=== PATIENT | female | born 1965 | race Caucasian/White ===

== ENCOUNTER 2017-01-30 03:13 | Inpatient (IN) | payer OTHER ==
[2017-01-30] VITALS (18 sets, daily range): BP systolic 102–141; BP diastolic 40–98
[~2017-01-30] VITALS: Ht 162.6 cm; Wt 72.6 kg
[2017-01-30] MEDS ORDERED: HUMALOG100 UNIT/4 SUBQ (03:21)
[2017-01-30] MEDS ORDERED: LANTUS SOL100 UNIT/1 SUBQ (03:21)
--- NOTE | 2017-01-30 03:36 | Emergency Room Report ---
History of Present Illness General Chief Complaint: Vomiting Source: Patient Present Illness HPI Is a 51-year-old female with history of diabetes, on insulin. She presents with chief complaint abdominal pain with vomiting. Onset last night. Worse around an hour ago. Unable to keep anything down. No diarrhea. No fever or chills. Does have aches and pain. Pain is 7/10 crampy in nature. No sick contact. No runny nose. No congestion. Allergies: Coded Allergies: PENICILLINS (Verified Allergy, Unknown, 01/30/17) Patient History Past Medical History: see triage record, old chart reviewed, DM Past Surgical History: other Pertinent Family History: none Social History: Denies: smoking Last Menstrual Period: last week Now: No Immunizations: other Reviewed Nursing Documentation: PMH: Agreed, PSxH: Agreed Nursing Documentation-PMH Hx Diabetes: Yes Review of Systems Eye: Denies: blurred vision, eye pain ENT: Denies: ear pain, nose congestion, throat swelling Respiratory: Denies: cough, shortness of breath Cardiovascular: Denies: chest pain, palpitations Gastrointestinal: Reports: abdominal pain, nausea, vomiting Musculoskeletal: Denies: back pain, joint pain Skin: Denies: rash Neurological: Denies: headache, numbness Endocrine: Denies: increased thirst, increased urine Hematologic/Lymphatic: Denies: easy bruising All Other Systems: negative except mentioned in HPI Physical Exam Vital Signs Date Time Temp Pulse Resp B/P Pulse Ox O2 Delivery O2 Flow Rate FiO2 01/30/17 03:16 98.2 110 18 130/61 100 Room Air vitals with tachycardi Sp02 EP Interpretation: reviewed, normal General Appearance: well appearing, no apparent distress, alert Head: normocephalic, atraumatic Eyes: bilateral eye EOMI, bilateral eye PERRL ENT: hearing grossly normal, normal pharynx Neck: full range of motion, supple, no meningismus Respiratory: chest non-tender, lungs clear, normal breath sounds Cardiovascular #1: regular rate, rhythm, no murmur Gastrointestinal: normal bowel sounds, non tender, no mass, no organomegaly, no bruit, non-distended Musculoskeletal: back normal, gait/station normal, normal range of motion Psychiatric: mood/affect normal Skin: warm/dry Procedures Critical Care Time Critical Care Time Critical care is mandated in this patient who presented with DKA. Patient require my urgent intervention to attenuate the risks of metabolic collapse which may lead to cardiovascular collapse and . Critical care time is 35 minutes excluding any reportable procedure. Critical care time included evaluation, multiple reevaluation, looking at old charts, interpreting laboratory and diagnostic data, discussing case with patient and family and consultants, and charting. Medical Decision Making Diagnostic Impression: Primary Impression: Dehydration Additional Impressions: Acute renal failure (ARF) Qualified Codes: N17.9 - Acute kidney failure, unspecified Vomiting Qualified Codes: R11.2 - Nausea with vomiting, unspecified Acute hyperkalemia ER Course Patient present with vomiting. She is dehydrated and is in DKA. She will placed on an insulin drip. Potassium is elevated but she is getting insulin. This should drop. No evidence of bacterial infection. Oxygenation is normal. Will admit to ICU. Patient is unstable for transfer. Laboratory Tests Test 01/30/17 03:32 01/30/17 04:07 White Blood Count 12.7 K/UL (4.8-10.8) H Red Blood Count 4.88 M/UL (4.20-5.40) Hemoglobin 13.0 G/DL (12.0-16.0) Hematocrit 42.6 % (37.0-47.0) Mean Corpuscular Volume 87 FL (80-99) Mean Corpuscular Hemoglobin 26.5 PG (27.0-31.0) L Mean Corpuscular Hemoglobin Concent 30.4 G/DL (32.0-36.0) L Red Cell Distribution Width 13.4 % (11.6-14.8) Platelet Count 298 K/UL (150-450) Mean Platelet Volume 6.0 FL (6.5-10.1) L Neutrophils (%) (Auto) % (45.0-75.0) Lymphocytes (%) (Auto) % (20.0-45.0) Monocytes (%) (Auto) % (1.0-10.0) Eosinophils (%) (Auto) % (0.0-3.0) Basophils (%) (Auto) % (0.0-2.0) Urine Color Pale yellow Urine Appearance Clear Urine pH 5 (4.5-8.0) Urine Specific [place] 1.015 (1.005-1.035) Urine Protein 2+ (NEGATIVE) H Urine Glucose (UA) 4+ (NEGATIVE) H Urine Ketones 4+ (NEGATIVE) H Urine Occult Blood 2+ (NEGATIVE) H Urine Nitrite Negative (NEGATIVE) Urine Bilirubin Negative (NEGATIVE) Urine Urobilinogen Normal MG/DL (0.0-1.0) Urine Leukocyte Esterase Negative (NEGATIVE) Urine RBC 5-10 /HPF (0 - 2) H Urine WBC 0 /HPF (0 - 2) Urine Squamous Epithelial Cells Many /LPF (NONE/OCC) H Urine Bacteria Few /HPF (NONE) Sodium Level 133 mEQ/L (135-145) L Potassium Level 6.8 mEQ/L (3.4-4.9) *H Chloride Level 90 mEQ/L (98-107) L Carbon Dioxide Level 8 mEQ/L (20-30) *L Anion Gap 35 (5-15) H Blood Urea Nitrogen 37 mg/dL (7-23) H Creatinine 1.7 mg/dL (0.5-0.9) H Estimat Glomerular Filtration Rate 32.0 mL/min (>60) Glucose Level 559 mg/dL (74-106) *H Calcium Level 9.1 mg/dL (8.6-10.2) Total Bilirubin 0.4 mg/dL (0.0-1.2) Aspartate Amino Transf (AST/SGOT) 15 U/L (5-40) Alanine Aminotransferase (ALT/SGPT) 12 U/L (3-33) Alkaline Phosphatase 87 U/L (35-104) Total Protein 7.8 g/dL (6.6-8.7) Albumin 4.0 g/dL (3.5-5.2) Globulin 3.8 g/dL Albumin/Globulin Ratio 1.0 (1.0-2.7) Lipase 9 U/L (< 60) Arterial Blood pH 7.029 (7.350-7.450) Arterial Blood Partial Pressure CO2 15.4 mmHg (35.0-45.0) *L Arterial Blood Partial Pressure O2 177.3 mmHg (75.0-100.0) H Arterial Blood HCO3 4.0 mmol/L (22.0-26.0) L Arterial Blood Oxygen Saturation 98.6 % (92.0-98.0) H Arterial Blood Base Excess -25 [place]ingo Test Positive Lab Results Impression labs with high glucose and low bicarbonate. Rhythm Strip Diag. Results EP Interpretation: yes Rate: 90 Rhythm: NSR, no PVC's, no ectopy Last Vital Signs Date Time Temp Pulse Resp B/P Pulse Ox O2 Delivery O2 Flow Rate FiO2 01/30/17 03:16 98.2 110 18 130/61 100 Room Air Status: improved Disposition: ADMITTED INPATIENT Condition: Critical RONDA BERRY M.D. Jan 30, 2017 03:36
[2017-01-30 03:41] LABS: MEAN CORPUSCULAR HEMOGLOBIN 26.5 PG (27.0-31.0); MEAN CORPUSCULAR HGB CONC 30.4 G/DL (32.0-36.0); MEAN CORPUSCULAR VOLUME 87 FL (80-99); PLATELET COUNT 298 K/UL (150-450); RED BLOOD COUNT 4.88 M/UL (4.20-5.40); RED CELL DISTRIBUTION WIDTH 13.4 % (11.6-14.8); WHITE BLOOD COUNT 12.7 K/UL (4.8-10.8)
[2017-01-30 03:42] LABS: APPEARANCE,URINE CLEAR; KETONES,URINE 4+ (NEGATIVE); LEUKOCYTE ESTERASE ,URINE NEGATIVE (NEGATIVE); NITRITE,URINE NEGATIVE (NEGATIVE); PH,URINE 5 (4.5-8.0); PROTEIN,URINE 2+ (NEGATIVE); UROBILINOGEN,URINE NORMAL MG/DL (0.0-1.0)
[2017-01-30] MEDS ORDERED: Ketorolac 30mg Inj IV ONE (03:45)
[2017-01-30 03:50] LABS: BACTERIA,URINE FEW /HPF; SQUAMOUS EPITHELIAL CELL,UR MANY /LPF (NONE/OCC); WBC,URINE 0 /HPF (0 - 2)
[2017-01-30 03:58] LABS: CALCIUM 9.1 mg/dL (8.6-10.2); CREATININE 1.7 mg/dL (0.5-0.9); TOTAL PROTEIN 7.8 g/dL (6.6-8.7)
[2017-01-30 04:03] LABS: POTASSIUM 6.8 mEQ/L (3.4-4.9)
[2017-01-30 04:26] LABS: ABG ALLEN TEST POSITIVE; ABG BASE EXCESS -25; ABG PCO2 15.4 mmHg (35.0-45.0)
[2017-01-30 06:45] LABS: ANION GAP 34 (5-15); CALCIUM 8.2 mg/dL (8.6-10.2); CHLORIDE 96 mEQ/L (98-107); CREATININE 1.5 mg/dL (0.5-0.9); GLOMERULAR FILTRATION RATE 36.9 mL/min (>60); HEMOLYSIS 24; POTASSIUM 5.6 mEQ/L (3.4-4.9); SODIUM 136 mEQ/L (135-145)
[2017-01-30 06:52] LABS: CARBON DIOXIDE < 6 mEQ/L (20-30)
[2017-01-30] MEDS ORDERED: D5 1/2NS 1,000 ML IV SCH (07:00)
[2017-01-30 07:14] LABS: ANION GAP 34 (5-15); CALCIUM 8.3 mg/dL (8.6-10.2); CHLORIDE 98 mEQ/L (98-107); CREATININE 1.5 mg/dL (0.5-0.9); GLOMERULAR FILTRATION RATE 36.9 mL/min (>60); HEMOLYSIS 140; POTASSIUM 5.7 mEQ/L (3.4-4.9); SODIUM 138 mEQ/L (135-145)
[2017-01-30 07:25] LABS: CARBON DIOXIDE < 6 mEQ/L (20-30)
[2017-01-30] MEDS ORDERED: Sodium Bicarbonate 8.4% 50ml Carp IV ONE (08:30)
[2017-01-30] MEDS ORDERED: Azithromycin 250mg tab ORAL ONE (09:15)
[2017-01-30] MEDS: D5 1/2NS 1,000 ML IV SCH ×4 (10:07→23:01)
--- NOTE | 2017-01-30 12:27 | Diagnostic Imaging Report ---
Indication: COUGH Technique: One view of the chest Comparison: 07/21/2006 Findings: Lungs and pleural spaces are clear. Heart size is normal. No significant change Impression: No acute process
[2017-01-30 15:45] LABS: CALCIUM 7.3 mg/dL (8.6-10.2); GLOMERULAR FILTRATION RATE 58.9 mL/min (>60); POTASSIUM 3.9 mEQ/L (3.4-4.9)
[2017-01-30] MEDS: Insulin Rate Change 1 Each MISC PRN ×6 (16:18→23:02)
[2017-01-30] MEDS: Heparin 5000 units/ml inj SUBQ SCH (21:04)
--- NOTE | 2017-01-30 21:28 | History and Physical Report ---
DATE OF ADMISSION: 01/30/2017 CHIEF COMPLAINT: Nausea and vomiting. HISTORY OF PRESENT ILLNESS: The patient is a 51-year-old woman admitted to the emergency room today because of the above-noted symptoms. She says that she has had these symptoms for a day or two. She had a low-grade fever and some muscle aches. She was unable to eat and did not take her regular insulin dose. She became very weak and came to the emergency department. She was found to have diabetic ketoacidosis with severe acidemia; pH of 7.03. She was started on insulin drip and admission was arranged. PAST MEDICAL HISTORY: She has type 1 diabetes since age 12. She denies any other major health problems and denies cardiac disorders, hypertension or hyperlipidemia. SURGICAL HISTORY: Negative. HABITS: She does not smoke or drink and does not use drugs. REVIEW OF SYSTEMS: Otherwise, unremarkable. She has had a slight cough. PHYSICAL EXAMINATION: GENERAL: The patient is alert and responds appropriately. She is overweight. VITAL SIGNS: Heart rate is elevated 108 and regular. Other vital signs are normal. HEENT: The head is normocephalic. The breath smells ketotic. NECK: No jugular venous distention. No lymphadenopathy. CHEST: Clear. CARDIAC: Rhythm is regular and rapid. ABDOMEN: Soft and nontender. Liver and spleen not enlarged. EXTREMITIES: No clubbing, cyanosis, or edema. LABORATORY AND DIAGNOSTIC DATA: A chest x-ray is negative. White count is 12,700 and hemoglobin is 13. The pH is 7.03, pCO2 of 15, pO2 177, and base excess -25. Potassium was 6.8, but improved to 5.7, bicarbonate less than 6, creatinine 1.5 down from 1.7 and blood sugar was 559 when she arrived. Urinalysis shows no white cells, few red cells with 4+ glucose ketones and some protein. IMPRESSION: 1. Diabetic ketoacidosis with severe acidemia. 2. Mild leukocytosis PLAN: The patient will be continued on the insulin drip, intravenous fluids, and Endocrine consultation has been requested. Antibiotics will be given. She will be admitted to the intensive care. Serge Hernandez M.D. DR: LUDY JOB#: [id number] CC:
[2017-01-31] VITALS (15 sets, daily range): BP systolic 102–155; BP diastolic 40–89
[2017-01-31] MEDS: Insulin Rate Change 1 Each MISC PRN ×7 (00:14→06:14)
[2017-01-31] MEDS: D5 1/2NS 1,000 ML IV SCH (04:11)
[2017-01-31 06:20] LABS: MEAN CORPUSCULAR HEMOGLOBIN 29.3 PG (27.0-31.0); MEAN CORPUSCULAR HGB CONC 34.1 G/DL (32.0-36.0); MEAN CORPUSCULAR VOLUME 86 FL (80-99); MEAN PLATELET VOLUME 6.3 FL (6.5-10.1); PLATELET COUNT 156 K/UL (150-450); RED BLOOD COUNT 2.58 M/UL (4.20-5.40); WHITE BLOOD COUNT 15.3 K/UL (4.8-10.8)
[2017-01-31 06:41] LABS: ALANINE AMINOTRANSFERASE 10 U/L (3-33); ANION GAP 13 (5-15); ASPARTATE AMINO TRANSFERASE 17 U/L (5-40); CALCIUM 7.9 mg/dL (8.6-10.2); CARBON DIOXIDE 18 mEQ/L (20-30); CHLORIDE 104 mEQ/L (98-107); CREATININE 0.8 mg/dL (0.5-0.9); GLOMERULAR FILTRATION RATE > 60 mL/min (>60); HEMOLYSIS 2; POTASSIUM 3.4 mEQ/L (3.4-4.9); SODIUM 135 mEQ/L (135-145); TOTAL PROTEIN 5.3 g/dL (6.6-8.7)
--- NOTE | 2017-01-31 06:56 | General Progress Note ---
Assessment/Plan Problem List: (1) Diabetes mellitus with ketoacidosis ICD Codes: E13.10 - Other specified diabetes mellitus with ketoacidosis without coma SNOMED: 77140282, 077027383 (2) Acute hyperkalemia ICD Codes: E87.5 - Hyperkalemia SNOMED: 9737521 (3) Dehydration ICD Codes: E86.0 - Dehydration SNOMED: 00125910 (4) Acute renal failure (ARF) ICD Codes: N17.9 - Acute kidney failure, unspecified SNOMED: 92631319 Qualifiers: Qualified Codes: N17.9 - Acute kidney failure, unspecified (5) Vomiting ICD Codes: R11.10 - Vomiting, unspecified SNOMED: 224778275 Qualifiers: Qualified Codes: R11.2 - Nausea with vomiting, unspecified Assessment/Plan DC IV insulin start Levemir 30 units qam + Novolog 10 units ac tid + SSI change IVF to NS Subjective Allergies: Coded Allergies: PENICILLINS (Verified Allergy, Unknown, 01/30/17) All Systems: reviewed and negative except above Subjective in icu - doing better Objective Last 24 Hour Vital Signs Date Time Temp Pulse Resp B/P Pulse Ox O2 Delivery O2 Flow Rate FiO2 01/31/17 06:00 83 15 116/69 96 Room Air 01/31/17 05:00 82 15 119/61 96 Room Air 01/31/17 04:00 97.9 90 10 130/66 100 Room Air 01/31/17 04:00 85 01/31/17 03:00 81 17 138/70 96 Room Air 01/31/17 02:00 86 16 117/65 93 Room Air 01/31/17 01:00 84 14 123/62 97 Room Air 01/31/17 00:51 Room Air 01/31/17 00:00 86 01/31/17 00:00 98.3 87 16 102/40 97 Room Air 01/30/17 23:00 96 18 113/54 100 Room Air 01/30/17 22:00 100 14 111/58 100 Room Air 01/30/17 22:00 98.7 01/30/17 21:00 96 14 106/62 100 Room Air 01/30/17 20:00 98.7 92 16 119/75 100 Room Air 01/30/17 20:00 95 01/30/17 19:00 98 14 106/62 100 Room Air 01/30/17 18:00 95 16 107/45 100 Room Air 01/30/17 17:00 94 17 126/61 100 Room Air 01/30/17 16:00 98.9 95 16 117/40 98 Room Air 01/30/17 15:00 92 17 107/54 98 Room Air 01/30/17 14:00 102 18 106/57 100 Room Air 01/30/17 13:00 99.0 102 18 105/42 100 Room Air 01/30/17 12:30 101 01/30/17 12:19 99 18 117/56 99 Room Air 01/30/17 11:24 98.3 97 18 132/56 99 Room Air 01/30/17 10:30 98.3 87 15 137/61 100 Room Air 01/30/17 09:30 97.5 100 26 116/64 100 Room Air 01/30/17 08:30 98.0 99 22 129/57 100 Room Air 01/30/17 07:25 97.8 105 20 102/46 100 Room Air 01/30/17 07:25 105 20 Room Air Intake and Output 01/30/17 01/31/17 19:00 07:00 Intake Total 3232.48 ml 2114.21 ml Output Total 700 ml 0 ml Balance 2532.48 ml 2114.21 ml Intake Oral 300 ml 50 ml IV Total 2432.48 ml 2024.21 ml Other 500 ml 40 ml Output Urine Total 700 ml 0 ml # Voids 3 Laboratory Tests 01/30/17 15:00: Sodium Level 136, Potassium Level 3.9, Chloride Level 102, Carbon Dioxide Level 17L, Anion Gap 17H, Blood Urea Nitrogen 22, Creatinine 1.0H, Estimat Glomerular Filtration Rate 58.9, Glucose Level 230#H, Calcium Level 7.3L 01/31/17 04:10: Sodium Level 135, Potassium Level 3.4, Chloride Level 104, Carbon Dioxide Level 18L, Anion Gap 13, Blood Urea Nitrogen 14, Creatinine 0.8, Estimat Glomerular Filtration Rate > 60, Glucose Level 153H, Calcium Level 7.9L, White Blood Count 15.3H, Red Blood Count 2.58L, Hemoglobin 7.6#L, Hematocrit 22.2#L, Mean Corpuscular Volume 86, Mean Corpuscular Hemoglobin 29.3, Mean Corpuscular Hemoglobin Concent 34.1, Red Cell Distribution Width 14.0, Platelet Count 156, Mean Platelet Volume 6.3L, Neutrophils (%) (Auto) , Lymphocytes (%) (Auto) , Monocytes (%) (Auto) , Eosinophils (%) (Auto) , Basophils (%) (Auto) , Neutrophils % (Manual) [Pending], Lymphocytes % (Manual) [Pending], Platelet Estimate [Pending], Platelet Morphology [Pending], Hemoglobin A1c [Pending], Total Bilirubin 0.2, Aspartate Amino Transf (AST/SGOT) 17, Alanine Aminotransferase (ALT/SGPT) 10, Alkaline Phosphatase 51, Total Protein 5.3#L, Albumin 2.7L, Globulin 2.6, Albumin/Globulin Ratio 1.0 Height (Feet): 5 Height (Inches): 4.00 Weight (Pounds): 160 General Appearance: no apparent distress EENT: PERRL/EOMI Neck: non-tender Cardiovascular: normal peripheral pulses Respiratory/Chest: chest wall non-tender Abdomen: normal bowel sounds Objective Current Medications Medications (Trade) Dose Ordered Sig/Anton Route PRN Reason Start Time Stop Time Status Last Admin Dose Admin Acetaminophen (Tylenol) 650 mg Q4H PRN ORAL Mild Pain/Temp > 100.5 01/30/17 20:45 03/01/17 20:44 01/30/17 21:04 Dextrose (Dextrose 50%) PRN PRN IV HYPOGLYCEMIA 01/30/17 13:15 03/01/17 13:14 Dextrose STAT PRN IV Hypoglycemia 01/30/17 09:15 03/01/17 09:14 Dextrose/Sodium Chloride (D5 0.45% NS) 1,000 ml @ 200 mls/hr Q5H IV 01/30/17 10:15 03/01/17 10:14 01/31/17 04:11 Heparin Sodium (Porcine) (Heparin 5000 units/ml) 5,000 units EVERY 12 HOURS SUBQ 01/30/17 21:00 03/01/17 20:59 01/30/17 21:04 Insulin Human Regular (NovoLIN R) 5 units PRN PRN IV BS 200-299 01/30/17 13:15 03/01/17 13:14 01/30/17 17:13 Insulin Human Regular (NovoLIN R) 10 units PRN PRN IV BS=>300 01/30/17 13:15 03/01/17 13:14 Insulin Human Regular/Sodium Chloride (NovoLIN R/ Sodium Chloride) 101 ml @ 0 mls/hr Q24H IV 01/30/17 15:00 03/01/17 14:59 01/30/17 16:17 Miscellaneous Medication (Insulin Rate Change) 1 ea PRN PRN MISC Hyperglycemia 01/30/17 13:15 03/01/17 13:14 01/31/17 06:14 Pantoprazole (Protonix) 40 mg DAILY IVP 01/31/17 09:00 03/02/17 08:59 Item Value Date Time Bedside Blood Glucose 161 mg/dl H 01/31/17 0614 Bedside Blood Glucose 163 mg/dl H 01/31/17 0202 Bedside Blood Glucose 161 mg/dl H 01/30/17 2200 Bedside Blood Glucose 178 mg/dl H 01/30/17 1804 Bedside Blood Glucose 228 mg/dl H 01/30/17 1400 Bedside Blood Glucose 228 mg/dl H 01/30/17 1034 JHON CYR 21, 2017 06:56
[2017-01-31 06:59] LABS: HEMOGLOBIN A1C 8.9 % (< 6.0)
[2017-01-31] MEDS ORDERED: NovoLOG Insulin Flexpen SUBQ SCH ×2 (08:00→11:30)
[2017-01-31] MEDS ORDERED: Levemir Flexpen SUBQ SCH (08:00)
[2017-01-31 08:43] LABS: BAND NEUTROPHILS % (MANUAL) 0 % (0-8); BASOPHILS % (MANUAL) 0 % (0-2); EOSINOPHILS % (MANUAL) 0 % (0-3); LYMPHOCYTES % (MANUAL) 3 % (20-45); NEUTROPHILS % (MANUAL) 90 % (45-75); PLATELET ESTIMATE ADEQUATE; PLATELET MORPHOLOGY NORMAL; TOTAL CELLS COUNTED 100
[2017-01-31] MEDS: Heparin 5000 units/ml inj SUBQ SCH ×2 (09:00→21:43)
[2017-01-31] MEDS ORDERED: Pantoprazole Inj IVP SCH (09:00)
[2017-01-31 09:30] LABS: BASOPHILS % (AUTO) 0.6 % (0.0-2.0); EOSINOPHILS % (AUTO) 0.3 % (0.0-3.0); LYMPHOCYTES % (AUTO) 20.6 % (20.0-45.0); MEAN CORPUSCULAR VOLUME 82 FL (80-99); MEAN PLATELET VOLUME 6.3 FL (6.5-10.1); NEUTROPHILS % (AUTO) 69.5 % (45.0-75.0); PLATELET COUNT 192 K/UL (150-450); RED BLOOD COUNT 4.01 M/UL (4.20-5.40); RED CELL DISTRIBUTION WIDTH 12.8 % (11.6-14.8); WHITE BLOOD COUNT 4.9 K/UL (4.8-10.8)
--- NOTE | 2017-01-31 11:26 | Cardiology Report ---
APPROVED REPORT EKG Measurement Heart [id number] DC 126P67 [id number] [id number] Sinus tachycardia Nonspecific T wave abnormality Abnormal ECG
--- NOTE | 2017-01-31 11:44 | Critical Care Progress Note ---
Assessment/Plan Status: progressing Assessment/Plan 1. Diabetic ketoacidosis with severe acidemia. 2. Mild leukocytosis doing much better acidosis resolved off insulin drip on SQ per endo repeat cbc ok transfer to medical bed Critical Care - Subjective Condition: improving IV Access: peripheral EKG Rhythm: Sinus Rhythm I&O: Intake and Output 01/30/17 01/31/17 19:00 07:00 Intake Total 3232.48 ml 2316.73 ml Output Total 700 ml 400 ml Balance 2532.48 ml 1916.73 ml Intake Oral 300 ml 50 ml IV Total 2432.48 ml 2226.73 ml Other 500 ml 40 ml Output Urine Total 700 ml 400 ml # Voids 3 Critical Care - Objective Last 24 Hour Vital Signs Date Time Temp Pulse Resp B/P Pulse Ox O2 Delivery O2 Flow Rate FiO2 01/31/17 08:00 78 01/31/17 07:00 93 15 141/67 97 Room Air 01/31/17 06:00 83 15 116/69 96 Room Air 01/31/17 05:00 82 15 119/61 96 Room Air 01/31/17 04:00 97.9 90 10 130/66 100 Room Air 01/31/17 04:00 85 01/31/17 03:00 81 17 138/70 96 Room Air 01/31/17 02:00 86 16 117/65 93 Room Air 01/31/17 01:00 84 14 123/62 97 Room Air 01/31/17 00:51 Room Air 01/31/17 00:00 86 01/31/17 00:00 98.3 87 16 102/40 97 Room Air 01/30/17 23:00 96 18 113/54 100 Room Air 01/30/17 22:00 100 14 111/58 100 Room Air 01/30/17 22:00 98.7 01/30/17 21:00 96 14 106/62 100 Room Air 01/30/17 20:00 98.7 92 16 119/75 100 Room Air 01/30/17 20:00 95 01/30/17 19:00 98 14 106/62 100 Room Air 01/30/17 18:00 95 16 107/45 100 Room Air 01/30/17 17:00 94 17 126/61 100 Room Air 01/30/17 16:00 98.9 95 16 117/40 98 Room Air 01/30/17 15:00 92 17 107/54 98 Room Air 01/30/17 14:00 102 18 106/57 100 Room Air 01/30/17 13:00 99.0 102 18 105/42 100 Room Air 01/30/17 12:30 101 01/30/17 12:19 99 18 117/56 99 Room Air Status: alert Condition: improving Neck: no JVD Lungs: clear Heart: normal rate Abdomen: non-tender Accucheck: 131 RADHA LEWIS Jan 31, 2017 11:44
[2017-01-31] MEDS: NovoLOG Insulin Flexpen SUBQ SCH ×4 (11:50→21:42)
--- NOTE | 2017-01-31 19:29 | Consultation ---
DATE OF CONSULTATION: 01/30/2017 ENDOCRINOLOGY CONSULTATION: REFERRING PHYSICIAN: Serge Hernandez M.D. REASON FOR CONSULTATION: Diabetic ketoacidosis. HISTORY OF PRESENT ILLNESS: The patient was admitted to the emergency room. Patient is going to be admitted in the ICU. The patient is a 51-year-old female with a history of insulin-dependent diabetes, who presented to the hospital with abdominal pain, nausea, and vomiting. Chemistry revealed a sodium of 132 with potassium 6.8, chloride 90, bicarbonate 8, anion gap 35, BUN 77, creatinine 1.7, and glucose 569. The patient's bicarbonate was lower and undetectable. She was diagnosed with severe diabetic ketoacidosis and admitted to the ICU to be started on insulin drip. PAST MEDICAL HISTORY: Insulin-dependent diabetes. MEDICATIONS: 1. Lantus 30 units at bedtime. 2. Humalog 10 units three times a day. For rest of the medications, refer to electronic medical record. SOCIAL HISTORY: No smoking, alcohol, or drug use. FAMILY HISTORY: Noncontributory. PHYSICAL EXAMINATION: VITAL SIGNS: Blood pressure 130/61, pulse 110, respiratory rate 18, and temperature 98.2 degrees. HEENT: Pupils are equal and reactive to light and accommodation. Sclerae are anicteric. NECK: No JVD. LUNGS: Clear. HEART: Tachy. ABDOMEN: Positive bowel sounds. EXTREMITIES: No clubbing, cyanosis, or edema. DIAGNOSES: 1. Severe diabetic ketoacidosis. 2. Hyperkalemia. 3. Acute kidney injury. PLAN: Start on IV insulin with D5 NS. Insulin drip initiated. I am going to continue blood glucose monitoring every hour. Monitor electrolytes and adjust accordingly. Insulin therapy will be changed to subcutaneous insulin once the anion gap is closed. I will follow the patient during hospital stay. Thank you, Dr. Hernandez, for the courtesy of this consultation. Jesús Melton M.D. DR: Jason JOB#: [id number] CC: ANGELA
[2017-02-01] VITALS: BP 148/84
[2017-02-01 04:00] VITALS: BP 156/79
[2017-02-01] MEDS: NovoLOG Insulin Flexpen SUBQ SCH ×2 (06:14→06:15)
--- NOTE | 2017-02-01 07:29 | General Progress Note ---
Assessment/Plan Problem List: (1) Diabetes mellitus with ketoacidosis ICD Codes: E13.10 - Other specified diabetes mellitus with ketoacidosis without coma SNOMED: 51399913, 786696258 (2) Acute hyperkalemia ICD Codes: E87.5 - Hyperkalemia SNOMED: 6733870 (3) Dehydration ICD Codes: E86.0 - Dehydration SNOMED: 22946847 (4) Acute renal failure (ARF) ICD Codes: N17.9 - Acute kidney failure, unspecified SNOMED: 65587041 Qualifiers: Qualified Codes: N17.9 - Acute kidney failure, unspecified (5) Vomiting ICD Codes: R11.10 - Vomiting, unspecified SNOMED: 695060262 Qualifiers: Qualified Codes: R11.2 - Nausea with vomiting, unspecified Assessment/Plan DKA resolved continue Levemir 30 units qam reduce Novolog 10 to 6 units ac tid + SSI Subjective Allergies: Coded Allergies: PENICILLINS (Verified Allergy, Unknown, 01/30/17) Subjective transferred out of icu she is resting Objective Last 24 Hour Vital Signs Date Time Temp Pulse Resp B/P Pulse Ox O2 Delivery O2 Flow Rate FiO2 02/01/17 04:00 98.1 111 20 156/79 98 Room Air 02/01/17 00:00 97.9 94 20 148/84 98 Room Air 01/31/17 20:00 98.1 89 19 155/89 99 Room Air 01/31/17 16:00 97.9 81 19 140/72 99 Room Air 01/31/17 11:00 82 16 120/46 97 Room Air 01/31/17 10:00 84 15 142/65 97 Room Air 01/31/17 09:00 92 15 147/65 97 Room Air 01/31/17 08:00 98.0 83 16 145/71 98 Room Air 01/31/17 08:00 78 Intake and Output 01/31/17 02/01/17 19:00 07:00 Intake Total 790 ml 740 ml Output Total 0 ml Balance 790 ml 740 ml Intake Oral 780 ml 240 ml IV Total 500 ml Other 10 ml Output Urine Total 0 ml # Voids 1 2 Laboratory Tests 01/31/17 09:00: White Blood Count 4.9#, Red Blood Count 4.01L, Hemoglobin 10.8#L, Hematocrit 32.8#L, Mean Corpuscular Volume 82, Mean Corpuscular Hemoglobin 27.0, Mean Corpuscular Hemoglobin Concent 33.0, Red Cell Distribution Width 12.8, Platelet Count 192, Mean Platelet Volume 6.3L, Neutrophils (%) (Auto) 69.5, Lymphocytes ( %) (Auto) 20.6, Monocytes (%) (Auto) 9.0, Eosinophils (%) (Auto) 0.3, Basophils (%) (Auto) 0.6 Height (Feet): 5 Height (Inches): 4.00 Weight (Pounds): 160 General Appearance: no apparent distress Neck: normal alignment Cardiovascular: normal rate Respiratory/Chest: lungs clear Abdomen: normal bowel sounds Objective Current Medications Medications (Trade) Dose Ordered Sig/Anton Route PRN Reason Start Time Stop Time Status Last Admin Dose Admin Acetaminophen (Tylenol) 650 mg Q4H PRN ORAL Mild Pain/Temp > 100.5 01/31/17 12:45 03/02/17 12:44 Dextrose (Dextrose 50%) STAT PRN IV Hypoglycemia 01/31/17 12:30 03/02/17 12:29 Heparin Sodium (Porcine) (Heparin 5000 units/ml) 5,000 units EVERY 12 HOURS SUBQ 01/31/17 21:00 03/02/17 20:59 01/31/17 21:43 Ibuprofen (Advil) 400 mg Q6H PRN ORAL Moderate Pain (Pain Scale 4-6) 01/31/17 14:00 03/02/17 13:59 02/01/17 00:33 Insulin Aspart (NovoLOG) BEFORE MEALS AND HS SUBQ 01/31/17 16:30 03/02/17 16:29 02/01/17 06:15 Insulin Aspart (NovoLOG) 10 units NOVOTIAC SUBQ 01/31/17 11:50 03/02/17 11:49 02/01/17 06:14 Insulin Detemir (Levemir) 30 units DAILY SUBQ 02/01/17 09:00 03/03/17 08:59 Pantoprazole (Protonix) 40 mg DAILY IVP 02/01/17 09:00 03/03/17 08:59 Sodium Chloride (Sodium Chloride 1000ml bag) 1,000 ml @ 100 mls/hr Q10H IV 01/31/17 12:30 03/02/17 12:29 02/01/17 03:46 Item Value Date Time Bedside Blood Glucose 117 mg/dl 02/01/17 0630 Bedside Blood Glucose 304 mg/dl H 01/31/17 2142 Bedside Blood Glucose 117 mg/dl 01/31/17 1710 Bedside Blood Glucose 73 mg/dl 01/31/17 1219 Bedside Blood Glucose 131 mg/dl H 01/31/17 0800 Bedside Blood Glucose 161 mg/dl H 01/31/17 0614 Bedside Blood Glucose 163 mg/dl H 01/31/17 0202 JHON CYR 22, 2017 07:29
[2017-02-01 08:00] VITALS: BP 155/84
[2017-02-01] MEDS: Heparin 5000 units/ml inj SUBQ SCH (09:00)
[2017-02-01] MEDS ORDERED: Levemir Flexpen SUBQ SCH (09:00)
[2017-02-01] MEDS ORDERED: Pantoprazole Inj IVP SCH (09:00)
[2017-02-01] MEDS ORDERED: D5 1/2NS 1000ml IV ONE (09:59)
[2017-02-01] MEDS ORDERED: NovoLOG Insulin Flexpen SUBQ SCH (11:50)
--- NOTE | 2017-02-01 13:04 | Discharge Summary ---
Discharge Summary Hospital Course Date of Admission Jan 30, 2017 at 04:30 Date of Discharge Feb 01, 2017 at 10:00 Admitting Diagnosis Diabetic keto-Acidosis HPI Berta Hazel is a 51 year old female who was admitted on Jan 30, 2017 at 04:30 for Diabetic Keto-Acidosis Consultations endo Procedures no Hospital Course improved w IVF, insulin drip acidosis resolved, transfer to floor dc home Discharge Medications Continued Medications: Insulin Glargine (Lantus) 100 Unit/1 Ml Insuln.pen 30 SUBQ BEDTIME, #1 EA 0 Refills Insulin Lispro (Humalog) 100 Unit/1 Ml Cartridge 10 SUBQ THREE TIMES A DAY, #1 UNITS 0 Refills Discharge Condition Upon Discharge: improving Discharge Disposition Patient was discharged to home Discharge Diagnoses: (1) Diabetes mellitus with ketoacidosis RADHA LEWIS Feb 01, 2017 13:04
== END 2017-02-01 10:00 | disposition home or self-care (01) | DRG 638 ==
LOC: EMR 03:38 → ICU 04:30 → UNDOADMIN 04:30 → ICU 04:37 → UNDOADMIN 04:37 → EDBEDREQ 11:08 → ICU 01-31 11:43 → 3E 01-31 11:43 → ICU 01-31 15:59 → 3E 01-31 16:31
DX: E10.10 Type 1 diabetes mellitus with ketoacidosis without coma (principal); N17.9 Acute kidney failure, unspecified; E87.5 Hyperkalemia; E86.0 Dehydration; Z88.0 Allergy status to penicillin; Z79.4 Long term (current) use of insulin
CPT/HCPCS: 36415; 36600; 71010; 80048; 80053; 81003; 82803; 82962; 83036; 83690; 85007; 85025; 87081; 93005; J1815; J2405; S5561